=== PATIENT | male | born 1975 | race Hispanic/Latino ===

== ENCOUNTER 2021-03-15 10:24 | Emergency (ER) | payer MEDICAID ==
[~2021-03-15] VITALS: Ht 167.6 cm; Wt 113.4 kg
[~2021-03-15 10:24] MED LIST: CYCL10TA16 PO; NAPR-1180 PO
[2021-03-15 10:39] VITALS: BP 152/90
[2021-03-15] MEDS ORDERED: KETOROLAC 60 MG VIAL (30MG/ML) ONE (10:55)
[2021-03-15] MEDS ORDERED: KETOROLAC 60 MG VIAL (30MG/ML) IM ONE (11:00)
[2021-03-15] MEDS ORDERED: LIDOP TD (11:06)
== END 2021-03-15 11:18 | disposition home or self-care (01) ==
LOC: EDH 10:24
DX: M25.462 Effusion, left knee (principal); M25.562 Pain in left knee; G89.29 Other chronic pain; E11.9 Type 2 diabetes mellitus without complications; M19.90 Unspecified osteoarthritis, unspecified site; M79.7 Fibromyalgia; I10 Essential (primary) hypertension; E66.9 Obesity, unspecified; Z68.41 Body mass index [BMI] 40.0-44.9, adult; Z79.1 Long term (current) use of non-steroidal anti-inflammatories (NSAID)
CPT/HCPCS: 96372; 99284; J1885

== ENCOUNTER 2021-05-28 15:39 | Emergency (ER) | payer MEDICAID ==
[~2021-05-28] VITALS: Ht 167.6 cm; Wt 108.9 kg
[~2021-05-28 15:39] MED LIST changes: +LIDOP TD
[2021-05-28] MEDS ORDERED: LORATADINE 10 MG TABLET ONE (16:20)
[2021-05-28] MEDS ORDERED: MONTELUKAST SODIUM 10 MG TAB ONE (16:20)
[2021-05-28] MEDS ORDERED: MONTELUKAST SODIUM 10 MG TAB PO SCH (16:30)
[2021-05-28] MEDS ORDERED: FLUTICASONE PROPIONATE 50MCG/SPRAY 16 GM BOTTLE EN SCH (16:30)
[2021-05-28] MEDS ORDERED: LORATADINE 10 MG TABLET PO STA (16:32)
[2021-05-28] MEDS ORDERED: PHARMACY COMMUNICATION MISC SCH (17:00)
[2021-05-28 17:02] LABS: APPEARANCE,URINE Clear (CLEAR); BILIRUBIN,URINE Negative (NEGATIVE); COLOR,URINE Yellow (YELLOW); GLUCOSE, URINE (UA) Negative (NEGATIVE); KETONES,URINE Trace mg/dL (NEGATIVE); LEUKOCYTE ESTERASE ,URINE Trace (NEGATIVE); NITRATE,URINE Negative (NEGATIVE); OCCULT BLOOD,URINE Negative (NEGATIVE); PH,URINE 5.5 (5.0-8.0); PROTEIN,URINE Negative (NEGATIVE)
[2021-05-28 17:09] LABS: RBC,URINE 0-1 /HPF (0-1)
[2021-05-28 17:10] LABS: BACTERIA,URINE Rare /HPF (None Seen); MUCUS,URINE Rare LPF (None Seen); SQUAMOUS EPITHELIAL CELL,UR Rare /HPF (0-2)
[2021-05-28] MEDS ORDERED: LORA10TA7 PO (17:14)
[2021-05-28] MEDS ORDERED: MONT-39 PO (17:14)
[2021-05-28 17:35] VITALS: BP 132/78
== END 2021-05-28 17:36 | disposition home or self-care (01) ==
LOC: EDH 15:39
DX: J45.909 Unspecified asthma, uncomplicated (principal); E03.9 Hypothyroidism, unspecified; E11.9 Type 2 diabetes mellitus without complications; I10 Essential (primary) hypertension; M19.90 Unspecified osteoarthritis, unspecified site; Z79.1 Long term (current) use of non-steroidal anti-inflammatories (NSAID)
CPT/HCPCS: 81001; 82948

== ENCOUNTER 2023-08-09 01:35 | Emergency (ER) | payer MEDICAID, OTHER ==
[~2023-08-09 01:35] MED LIST changes: +LORA10TA7 PO; +MONT-39 PO
[2023-08-09] MEDS: HYDRALAZINE 20MG/ML VIAL IV ONE (02:01)
[2023-08-09] MEDS: KETOROLAC 15MG/ML VIAL (15MG/ML) IV ONE (02:01)
[2023-08-09 02:02] LABS: BASOPHILS # (AUTO) 0.08 K/uL (0.00-0.20); BASOPHILS % (AUTO) 0.6 % (0.0-5.0); EOSINOPHILS # (AUTO) 0.37 K/uL (0.00-0.70); HEMATOCRIT 47.8 % (42-54); IMMATURE GRANULOCYTE ABSOLUTE 0.04 K/uL (0-1); LYMPHOCYTES # (AUTO) 3.3 K/uL (1.0-4.8); LYMPHOCYTES % (AUTO) 26.6 % (21.0-51.0); MEAN CORPUSCULAR HEMOGLOBIN 29.3 pg (27.0-33.0); MEAN CORPUSCULAR HGB CONC 33.1 g/dL (32.0-36.0); MEAN CORPUSCULAR VOLUME 88.5 fL (79-99); MONOCYTES # (AUTO) 0.8 K/uL (0.1-1.0); MONOCYTES % (AUTO) 6.6 % (3.0-13.0); NEUTROPHILS # (AUTO) 7.8 K/uL (1.8-7.7); NEUTROPHILS % (AUTO) 62.9 % (40.0-77.0); PLATELET COUNT (AUTO) 167 K/uL (130-400); RED CELL DISTRIBUTION WIDTH 13.2 % (11.0-15.5); WHITE BLOOD COUNT (AUTO) 12.5 K/uL (4.8-10.8)
[2023-08-09 02:10] LABS: CREATININE 0.8 mg/dL (0.5-1.3); POTASSIUM 3.7 mmol/L (3.5-5.1)
[2023-08-09 02:53] VITALS: BP 147/77; PULSE 76; RESP 18; O2SAT 98
== END 2023-08-09 02:56 | disposition home or self-care (01) ==
LOC: EDH 01:35
DX: I10 Essential (primary) hypertension (principal); M19.90 Unspecified osteoarthritis, unspecified site; E11.9 Type 2 diabetes mellitus without complications; E03.9 Hypothyroidism, unspecified
CPT/HCPCS: 99284; 96374; 96375; 84484; 80048; 85025; 36415; 93005; J0360; J1885